=== PATIENT | male | born 1950 | race Caucasian/White ===

== ENCOUNTER 2021-02-21 20:48 | Emergency (ER) | payer MEDICARE ==
[~2021-02-21] VITALS: Ht 167.6 cm; Wt 81.6 kg
[2021-02-21] MEDS ORDERED: ACETAMINOPHEN 325 MG TAB PO ONE (21:15)
[2021-02-21 21:48] LABS: BASOPHILS % 0.2 % (0.0-1.0); EOSINOPHILS % 0.2 % (0.0-6.0); HEMATOCRIT 44.2 % (38.2-49.6); HEMOGLOBIN 15.3 g/dL (14.0-18.0); MEAN CORPUSCULAR HEMOGLOBIN 31.4 pg (28-32); MEAN CORPUSCULAR HGB CONC 34.6 g/dL (31-35); MEAN CORPUSCULAR VOLUME 90.8 fL (81-99); MONOCYTES # (AUTO) 0.7 (0.2-0.8); MONOCYTES % 11.1 % (4.4-11.3); NEUTROPHILS # (AUTO) 4.7 (2.1-6.9); PLATELET COUNT 146 x10e3/uL (140-360); RED BLOOD COUNT 4.87 x10e6/uL (4.3-5.7)
[2021-02-21 21:51] LABS: ALBUMIN 3.5 g/dL (3.5-5.0); ALBUMIN/GLOBULIN RATIO 0.9 (0.8-2.0); ANION GAP 15.3 mmol/L (8-16); CALCIUM 8.2 mg/dL (8.4-10.2); CREATININE, SERUM 1.36 mg/dL (0.72-1.25); POTASSIUM 4.3 mmol/L (3.5-5.1)
[2021-02-21] MEDS ORDERED: BAMLANIVIMAB 700 MG/20 ML VIAL IV ONE (22:45)
[2021-02-22 02:09] VITALS: BP 158/77
== END 2021-02-22 01:30 | disposition home or self-care (01) ==
LOC: ER 21:05
DX: U07.1 COVID-19 (principal); R50.9 Fever, unspecified; R05 Cough; R06.02 Shortness of breath; Z85.828 Personal history of other malignant neoplasm of skin; R94.31 Abnormal electrocardiogram [ECG] [EKG]
CPT/HCPCS: 36415; 71045; 80053; 85025; 93005; 99284

== ENCOUNTER → 2021-03-06 | Outpatient (CLI) | payer MEDICARE | LOC: RAD 15:45 | PROVIDERS: ATTEND Internal Medicine Critical Care Medicine | DX: U07.1 COVID-19 (principal) | CPT/HCPCS: 71046 ==

== ENCOUNTER → 2021-03-22 | Outpatient (CLI) | payer MEDICARE | LOC: RAD 09:32 | PROVIDERS: ATTEND Internal Medicine Critical Care Medicine | DX: R05 Cough (principal); U07.1 COVID-19; J18.9 Pneumonia, unspecified organism; B97.89 Other viral agents as the cause of diseases classified elsewhere; R06.00 Dyspnea, unspecified | CPT/HCPCS: 71046 ==